=== PATIENT | male | born 1965 | race Caucasian/White ===

== ENCOUNTER 2020-08-27 12:16 | Inpatient (IN) | payer BC, OTHER ==
--- NOTE | 2020-08-27 12:34 | ED ---
General Adult HPI - General Source: patient, RN notes reviewed Mode of arrival: ambulatory Limitations: no limitations <Donnie Horn - Last Filed: 08/27/20 12:33> <Ced Chacko - Last Filed: 08/27/20 17:53> - General Stated complaint: needs rehab, trying to get into [place] Time Seen by Provider: 08/27/20 12:26 - History of Present Illness Initial comments: 55-year-old male presents emergency Department from [place] for evaluation for alcohol intoxication. Patient was going for rehab states that he was struck away secondary to his breath alcohol at 357. Patient states he drinks very heavily. Denies any abdominal pain. Denies any nausea vomiting. Denies any chest pain shortness of breath. Patient does have a history of hypertension. (Donnie Horn) - Related Data Home Medications Medication Instructions Recorded Confirmed Atorvastatin [Lipitor] 40 mg PO DAILY 08/27/20 08/27/20 Levothyroxine Sodium [Synthroid] 25 mcg PO AC-BRKFST 08/27/20 08/27/20 Metoprolol Tartrate [Lopressor] 100 mg PO BID 08/27/20 08/27/20 Nicotine 21Mg/24Hr Patch [Habitrol] 1 patch TRANSDERM DAILY 08/27/20 08/27/20 QUEtiapine [SEROquel] 100 mg PO DAILY@1800 08/27/20 08/27/20 lisinopriL 40 mg PO DAILY 08/27/20 08/27/20 Allergies Allergy/AdvReac Type Severity Reaction Status Date / Time No Known Allergies Allergy Verified 08/27/20 13:45 Review of Systems ROS Other: All systems not noted in ROS Statement are negative. <Donnie Horn - Last Filed: 08/27/20 12:33> ROS Other: All systems not noted in ROS Statement are negative. <Ced Chacko - Last Filed: 08/27/20 17:53> ROS Statement: Those systems with pertinent positive or pertinent negative responses have been documented in the HPI. General Exam General appearance: alert, in no apparent distress Head exam: Present: atraumatic, normocephalic, normal inspection Respiratory exam: Present: normal lung sounds bilaterally. Absent: respiratory distress, wheezes, rales, rhonchi, stridor Cardiovascular Exam: Present: regular rate, normal rhythm, normal heart sounds. Absent: systolic murmur, diastolic murmur, rubs, gallop, clicks Neurological exam: Present: alert <JustinaDonnie Moustapha - Last Filed: 08/27/20 12:33> General appearance: alert, in no apparent distress Head exam: Present: atraumatic, normocephalic, normal inspection Eye exam: Present: normal appearance, PERRL, EOMI. Absent: scleral icterus, conjunctival injection, periorbital swelling ENT exam: Present: normal exam, mucous membranes moist Neck exam: Present: normal inspection. Absent: tenderness, meningismus, lymphadenopathy Respiratory exam: Present: normal lung sounds bilaterally. Absent: respiratory distress, wheezes, rales, rhonchi, stridor Cardiovascular Exam: Present: regular rate, normal rhythm, normal heart sounds. Absent: systolic murmur, diastolic murmur, rubs, gallop, clicks GI/Abdominal exam: Present: soft, normal bowel sounds. Absent: distended, tenderness, guarding, rebound, rigid Extremities exam: Present: normal inspection, full ROM, normal capillary refill. Absent: tenderness, pedal edema, joint swelling, calf tenderness Back exam: Present: normal inspection Neurological exam: Present: alert, oriented X3, CN II-XII intact Psychiatric exam: Present: normal affect, normal mood Skin exam: Present: warm, dry, intact, normal color. Absent: rash <Ced Chacko - Last Filed: 08/27/20 17:53> Course Vital Signs 08/27/20 08/27/20 12:31 17:35 Temperature 98.3 F Pulse Rate 122 H 108 H Respiratory 22 20 Rate Blood Pressure 147/110 156/120 O2 Sat by Pulse 93 L 96 Oximetry Medical Decision Making - Lab Data Result diagrams: 08/27/20 13:23 08/27/20 13:23 <Ced Chacko - Last Filed: 08/27/20 17:53> - Medical Decision Making Patient presents with profound alcohol intoxication. He can't be discharged home in this state. He will be observed until clinically sober. (Ced Chacko) - Lab Data Lab Results 08/27/20 08/27/20 Range/Units 13:23 13:23 WBC 5.3 (3.8-10.6) k/uL RBC 4.67 (4.30-5.90) m/uL Hgb 16.4 (13.0-17.5) gm/dL Hct 45.8 (39.0-53.0) % MCV 98.2 (80.0-100.0) fL MCH 35.1 H (25.0-35.0) pg MCHC 35.8 (31.0-37.0) g/dL RDW 16.2 H (11.5-15.5) % Plt Count 146 L (150-450) k/uL MPV 8.1 Neutrophils % 59 % Lymphocytes % 24 % Monocytes % 10 % Eosinophils % 2 % Basophils % 2 % Neutrophils # 3.1 (1.3-7.7) k/uL Lymphocytes # 1.3 (1.0-4.8) k/uL Monocytes # 0.5 (0-1.0) k/uL Eosinophils # 0.1 (0-0.7) k/uL Basophils # 0.1 (0-0.2) k/uL Anisocytosis Slight Macrocytosis Slight Sodium 144 (137-145) mmol/L Potassium 3.7 (3.5-5.1) mmol/L Chloride 106 (98-107) mmol/L Carbon Dioxide 25 (22-30) mmol/L Anion Gap 13 mmol/L BUN 15 (9-20) mg/dL Creatinine 0.65 L (0.66-1.25) mg/dL Est GFR (CKD-EPI)AfAm >90 (>60 ml/min/1.73 sqM) Est GFR (CKD-EPI)NonAf >90 (>60 ml/min/1.73 sqM) Glucose 118 H (74-99) mg/dL Calcium 9.0 (8.4-10.2) mg/dL Magnesium 1.6 (1.6-2.3) mg/dL Total Bilirubin 0.4 (0.2-1.3) mg/dL AST 188 H (17-59) U/L ALT 32 (4-49) U/L Alkaline Phosphatase 100 (38-126) U/L Total Protein 7.4 (6.3-8.2) g/dL Albumin 4.4 (3.5-5.0) g/dL Lipase 372 H (23-300) U/L Serum Alcohol 431 H* mg/dL Disposition <Donnie Horn - Last Filed: 08/27/20 12:33> Is patient prescribed a controlled substance at d/c from ED?: No <Ced Chacko - Last Filed: 08/27/20 17:53> Clinical Impression: Alcoholic intoxication Disposition: ADMITTED IP TO THIS HOSP Condition: Fair Instructions (If sedation given, give patient instructions): Alcohol Intoxication (ED) Referrals: Nonstaff,Physician [REFERRING] - 1-2 days
[2020-08-27] MEDS ORDERED: SODIUM CHLORIDE 0.9% 1,000 ML IV STA (12:46)
[2020-08-27] MEDS ORDERED: chlordiazePOXIDE 25 MG CAP PO STA (12:46)
[2020-08-27 13:59] LABS: Anisocytosis Slight; Basophils # (A) 0.1 k/uL (0-0.2); Basophils % (A) 2 %; Eosinophils # (A) 0.1 k/uL (0-0.7); Eosinophils % (A) 2 %; HCT 45.8 % (39.0-53.0); HGB 16.4 gm/dL (13.0-17.5); Lymphocytes # (A) 1.3 k/uL (1.0-4.8); Lymphocytes % (A) 24 %; MCH 35.1 pg (25.0-35.0); MCHC 35.8 g/dL (31.0-37.0); MCV 98.2 fL (80.0-100.0); Macrocytosis Slight; Mean Platelet Volume 8.1; Monocytes # (A) 0.5 k/uL (0-1.0); Monocytes % (A) 10 %; Neutrophils # (A) 3.1 k/uL (1.3-7.7); Neutrophils % (A) 59 %; Platelet Count 146 k/uL (150-450); RBC 4.67 m/uL (4.30-5.90); RDW 16.2 % (11.5-15.5); WBC 5.3 k/uL (3.8-10.6)
[2020-08-27 14:12] LABS: ALT 32 U/L (4-49); AST 188 U/L (17-59); African American GFR (CKD) >90 (>60 ml/min/1.73 sqM); Albumin 4.4 g/dL (3.5-5.0); Alkaline Phosphatase 100 U/L (38-126); Anion Gap 13 mmol/L; Blood Urea Nitrogen 15 mg/dL (9-20); Carbon Dioxide 25 mmol/L (22-30); Chloride 106 mmol/L (98-107); Glucose 118 mg/dL (74-99); Lipase 372 U/L (23-300); Magnesium 1.6 mg/dL (1.6-2.3); Non-African American GFR(CKD) >90 (>60 ml/min/1.73 sqM); Potassium 3.7 mmol/L (3.5-5.1); Sodium 144 mmol/L (137-145); Total Bilirubin 0.4 mg/dL (0.2-1.3); Total Protein 7.4 g/dL (6.3-8.2)
[2020-08-27 14:33] LABS: Alcohol 431 mg/dL
[2020-08-27] MEDS ORDERED: NALOXONE 0.4 MG/ML 1 ML VIAL IV PRN (17:53)
[2020-08-27] MEDS ORDERED: ONDANSETRON 4 MG/2 ML VIAL IVP PRN (17:53)
[2020-08-27] MEDS: METOPROLOL TARTRATE 50 MG TAB PO SCH (22:13)
[2020-08-27] MEDS: SODIUM CHLORIDE 0.9% 1,000 ML IV SCH (23:56)
[2020-08-27] MEDS: QUEtiapine 100 MG TAB PO SCH (23:56)
--- NOTE | 2020-08-28 00:31 | P.HPIM ---
History of Present Illness H&P Date: 08/28/20 The patient is a 55-year-old male with a PMH of EtOH abuse, hypertension, hyperlipidemia, and hypothyroidism who presented to the emergency room with alcohol intoxication. The patient notes that he wishes to detox and that he needs to be referred to [facility]. He notes drinking a pint of vodka daily, which is down from a gallon a day. He denied additional complaints. Denied history of alcohol withdrawal seizures or ever requiring Ativan infusion. Denied chest discomfort, shortness of breath, fever, chills, nausea, vomiting, abdominal pain, diarrhea, cough. Laboratory evaluation from the emergency room was reviewed and was remarkable for alcohol level of 431, lipase 372, AST 188, platelets 146. Review of Systems Pertinent positives and negatives as discussed in HPI, a complete review of systems was performed and all other systems are negative. Past Medical History Past Medical History: Hypertension History of Any Multi-Drug Resistant Organisms: None Reported Past Surgical History: No Surgical Hx Reported Past Psychological History: No Psychological Hx Reported Smoking Status: Current every day smoker Past Alcohol Use History: Abuse, Daily, Heavy Past Drug Use History: None Reported Medications and Allergies Home Medications Medication Instructions Recorded Confirmed Type Atorvastatin [Lipitor] 40 mg PO DAILY 08/27/20 08/27/20 History Levothyroxine Sodium [Synthroid] 25 mcg PO AC-BRKFST 08/27/20 08/27/20 History Metoprolol Tartrate [Lopressor] 100 mg PO BID 08/27/20 08/27/20 History Nicotine 21Mg/24Hr Patch [Habitrol] 1 patch TRANSDERM DAILY 08/27/20 08/27/20 History QUEtiapine [SEROquel] 100 mg PO DAILY@1800 08/27/20 08/27/20 History lisinopriL 40 mg PO DAILY 08/27/20 08/27/20 History Allergies Allergy/AdvReac Type Severity Reaction Status Date / Time No Known Allergies Allergy Verified 08/27/20 13:45 Physical Exam Vitals: Vital Signs Temp Pulse Resp BP Pulse Ox 08/27/20 17:35 108 H 20 156/120 96 08/27/20 12:31 98.3 F 122 H 22 147/110 93 L Intake and Output 08/27/20 08/27/20 08/27/20 06:59 14:59 22:59 Other: Weight 86.183 kg General: non toxic, no distress, appears at stated age, overweight Derm: no unusual rashes/lesions no unusual ecchymoses, warm, dry Head: atraumatic, normocephalic, symmetric Eyes: EOMI, no lid lag, anicteric sclera, pupils equal round reactive to light ENT: Nose and ears atraumatic, no thrush, no pharyngeal erythema Neck: No thyromegaly, no cervical lymphadenopathy, trachea midline, supple Mouth: no lip lesion, mucus membranes moist Cardiovascular: S1S2 reg, no murmur, positive posterior tibial pulse bilateral, no edema, capillary refill less than 2 seconds Lungs: CTA bilateral, no rhonchi, no rales , no accessory muscle use Abdominal: soft, nontender to palpation, no guarding, no appreciable organomegaly, normal bowel sounds Ext: no gross muscle atrophy, muscle strength 5 out of 5 in all 4 extremities grossly, no contractures, Neuro: CN II-XI grossly intact, light touch intact all 4 extremities, mild outstretched hand tremor Psych: Alert, oriented, appropriate affect Results CBC & Chem 7: 08/27/20 13:23 08/27/20 13:23 Labs: Abnormal Lab Results - Last 24 Hours (Table) 08/27/20 08/27/20 08/27/20 Range/Units 13:23 13:23 19:18 MCH 35.1 H (25.0-35.0) pg RDW 16.2 H (11.5-15.5) % Plt Count 146 L (150-450) k/uL Creatinine 0.65 L (0.66-1.25) mg/dL Glucose 118 H (74-99) mg/dL AST 188 H (17-59) U/L Lipase 372 H (23-300) U/L Serum Alcohol 431 H* 273 H* mg/dL Assessment and Plan Plan: Alcohol intoxication, impending withdrawal -Continue with thiamine, multivitamin -Aspiration, fall, seizure precautions -[facility] protocol -Referral to [facility] for detox Thrombocytopenia, abnormal LFTs, elevated lipase -Likely secondary to EtOH abuse Chronic conditions: Hypertension, hyperlipidemia, hypothyroidism -Continue with home medications DVT prophylaxis -Heparin subq The patient is admitted with an anticipated less than 2 midnight stay for evaluation of EtOH CODE STATUS: Full code Discussed with: Patient Anticipated discharge date: in am [facility] A total of 35 minutes was spent on the care of this complex patient more than 50% of the time was spent in counseling and care coordination.
[2020-08-28] MEDS ORDERED: THIAMINE 100 MG/ML 2 ML VIAL IM STA (01:43)
[2020-08-28 07:10] LABS: Anisocytosis Slight; HCT 38.3 % (39.0-53.0); MCH 33.8 pg (25.0-35.0); MCHC 34.1 g/dL (31.0-37.0); MCV 99.4 fL (80.0-100.0); Macrocytosis Slight; Mean Platelet Volume 9.1; Platelet Count 116 k/uL (150-450); RBC 3.85 m/uL (4.30-5.90); RDW 17.4 % (11.5-15.5); WBC 3.8 k/uL (3.8-10.6)
[2020-08-28 07:16] LABS: African American GFR (CKD) >90 (>60 ml/min/1.73 sqM); Anion Gap 5 mmol/L; Blood Urea Nitrogen 14 mg/dL (9-20); Calcium 8.1 mg/dL (8.4-10.2); Carbon Dioxide 25 mmol/L (22-30); Chloride 106 mmol/L (98-107); Glucose 91 mg/dL (74-99); Magnesium 1.2 mg/dL (1.6-2.3); Non-African American GFR(CKD) >90 (>60 ml/min/1.73 sqM); Potassium 3.3 mmol/L (3.5-5.1); Sodium 136 mmol/L (137-145)
[2020-08-28] MEDS ORDERED: POTASSIUM CHLORIDE ER 20 MEQ TAB.ER PO STA (08:00)
[2020-08-28] MEDS ORDERED: POTASSIUM CHLORIDE 20 MEQ in WATER FOR INJECTION 1 100ML.BAG IVPB STA (08:00)
[2020-08-28] MEDS: MAGNESIUM SULFATE-D5W PMX 1 GM in DEXTROSE/WATER 1 100ML.BAG IVPB SCH ×2 (08:25→09:33)
[2020-08-28] MEDS: LEVOTHYROXINE 25 MCG TAB PO SCH (08:26)
--- NOTE | 2020-08-28 09:13 | P.PN ---
Subjective Progress Note Date: 08/28/20 Patient was seen and evaluated by me today. He is still having significant shakiness and tremor secondary to alcohol withdrawal. He denies any other complaints otherwise. Objective - Vital Signs Vital signs: Vital Signs Temp 97.8 F 08/28/20 07:00 Pulse 79 08/28/20 07:00 Resp 18 08/28/20 07:00 BP 171/112 08/28/20 07:00 Pulse Ox 96 08/28/20 07:00 Intake & Output 08/27/20 08/28/20 08/28/20 18:59 06:59 18:59 Weight 86.183 kg 86.183 kg Other: # Voids 1 - Exam General: The patient is awake and alert, in no distress Eye: there is normal conjunctiva bilaterally. Neck: The neck is supple, there is no JVD. Cardiovascular: Normal S1-S2, no S3-S4, no murmurs. Respiratory: Lungs clear to auscultation bilaterally Gastrointestinal: Abdomen is soft, nontender Musculoskeletal: There is no pedal edema. Neurological:. Speech is normal. Skin: Skin is warm and dry - Labs CBC & Chem 7: 08/28/20 05:46 08/28/20 05:46 Labs: Abnormal Lab Results - Last 24 Hours (Table) 08/27/20 08/27/20 08/27/20 Range/Units 13:23 13:23 19:18 RBC (4.30-5.90) m/uL Hct (39.0-53.0) % MCH 35.1 H (25.0-35.0) pg RDW 16.2 H (11.5-15.5) % Plt Count 146 L (150-450) k/uL Sodium (137-145) mmol/L Potassium (3.5-5.1) mmol/L Creatinine 0.65 L (0.66-1.25) mg/dL Glucose 118 H (74-99) mg/dL Calcium (8.4-10.2) mg/dL Magnesium (1.6-2.3) mg/dL AST 188 H (17-59) U/L Lipase 372 H (23-300) U/L Serum Alcohol 431 H* 273 H* mg/dL 08/28/20 08/28/20 Range/Units 05:46 05:46 RBC 3.85 L (4.30-5.90) m/uL Hct 38.3 L (39.0-53.0) % MCH (25.0-35.0) pg RDW 17.4 H (11.5-15.5) % Plt Count 116 L (150-450) k/uL Sodium 136 L (137-145) mmol/L Potassium 3.3 L (3.5-5.1) mmol/L Creatinine 0.56 L (0.66-1.25) mg/dL Glucose (74-99) mg/dL Calcium 8.1 L (8.4-10.2) mg/dL Magnesium 1.2 L (1.6-2.3) mg/dL AST (17-59) U/L Lipase (23-300) U/L Serum Alcohol mg/dL Assessment and Plan Assessment: This is a 55-year-old male with past medical history noted below significant for heavy alcohol abuser presented to the emergency room with alcohol intoxication. Patient was evaluated in the ER and placed in observation for further management of his medical problems noted below. 1. Alcohol intoxication, managed with aggressive IV fluid hydration. I would start Valium 10 mg twice daily to prevent withdrawal. Ativan IV as needed per [facility] protocol. 2. Hypokalemia and hypomagnesemia, replacement ordered. Repeat lab work in the morning. 3. Thrombocytopenia, secondary to heavy alcohol abuse 4. Alcohol abuse: Counseled extensively to quit. Patient is willing to go to [place] for rehab. 5. Chronic medical problems: Essential hypertension, hyperlipidemia, hypothyroidism 6. DVT prophylaxis with subcu heparin Today, I reviewed his medication list and lab work results. Patient is now ready for discharge. Continue to treat withdrawal symptoms. Replace electrolytes. Repeat In the morning. Anticipate discharge tomorrow.
[2020-08-28] MEDS: METOPROLOL TARTRATE 50 MG TAB PO SCH ×2 (09:32→21:03)
[2020-08-28] MEDS: lisinopriL 20 MG TAB PO SCH (09:32)
[2020-08-28] MEDS: ATORVASTATIN 40 MG TAB PO SCH (09:32)
[2020-08-28] MEDS: HEPARIN SODIUM,PORCINE/PF 5,000 UNIT/0.5 ML SYRINGE SQ SCH ×3 (09:33→21:02)
[2020-08-28] MEDS: NICOTINE 21MG/24HR PATCH TRANSDERM SCH (09:33)
[2020-08-28] MEDS: LORazepam 2 MG/ML INJ IV PRN ×2 (09:36→21:04)
[2020-08-28] MEDS: diazePAM 5 MG TAB PO SCH ×2 (09:39→21:03)
[2020-08-28] MEDS: QUEtiapine 100 MG TAB PO SCH (17:13)
[2020-08-28] MEDS: THIAMINE 100 MG TAB PO SCH (17:13)
[2020-08-28] MEDS: SODIUM CHLORIDE 0.9% 1,000 ML IV SCH ×4 (18:19→23:41)
[2020-08-29] MEDS: NICOTINE 21MG/24HR PATCH TRANSDERM SCH (01:07)
[2020-08-29] MEDS: SODIUM CHLORIDE 0.9% 1,000 ML IV SCH ×3 (01:10→23:44)
[2020-08-29] MEDS: LORazepam 2 MG/ML INJ IV PRN ×11 (01:17→21:25)
[2020-08-29] MEDS: ATORVASTATIN 40 MG TAB PO SCH (08:21)
[2020-08-29] MEDS: lisinopriL 20 MG TAB PO SCH (08:21)
[2020-08-29] MEDS: diazePAM 5 MG TAB PO SCH ×2 (08:21→20:18)
[2020-08-29] MEDS: METOPROLOL TARTRATE 50 MG TAB PO SCH ×2 (08:21→20:17)
[2020-08-29] MEDS: LEVOTHYROXINE 25 MCG TAB PO SCH (08:21)
[2020-08-29] MEDS: THIAMINE 100 MG TAB PO SCH ×2 (08:22→17:49)
[2020-08-29] MEDS: HEPARIN SODIUM,PORCINE/PF 5,000 UNIT/0.5 ML SYRINGE SQ SCH ×2 (08:22→17:35)
[2020-08-29 13:05] LABS: African American GFR (CKD) >90 (>60 ml/min/1.73 sqM); Anion Gap 5 mmol/L; Blood Urea Nitrogen 7 mg/dL (9-20); Calcium 8.4 mg/dL (8.4-10.2); Carbon Dioxide 25 mmol/L (22-30); Chloride 106 mmol/L (98-107); Glucose 106 mg/dL (74-99); Magnesium 1.4 mg/dL (1.6-2.3); Non-African American GFR(CKD) >90 (>60 ml/min/1.73 sqM); Potassium 3.9 mmol/L (3.5-5.1); Sodium 136 mmol/L (137-145)
[2020-08-29] MEDS ORDERED: diazePAM 5 MG TAB PO STA (13:54)
--- NOTE | 2020-08-29 14:03 | P.PN ---
Subjective Progress Note Date: 08/29/20 Patient was having severe agitation this morning with evidence of tremors and severe withdrawal requiring 8 mg of IV Ativan since midnight. He also received 10 mg of Valium last night and 10 mg this morning. Patient was agitated and was trying to leave the hospital AGAINST MEDICAL ADVICE. I informed him that he is unable to make that decision at this time and is not safe to be discharged. Patient stood up and tried to walk out of the room require me to call security and eventually with help of other staff patient returned to his bed. He received more IV Ativan and appeared more relaxed. Objective - Vital Signs Vital signs: Vital Signs Temp 98.3 F 08/29/20 07:00 Pulse 73 08/29/20 07:00 Resp 20 08/29/20 08:00 BP 162/112 08/29/20 07:00 Pulse Ox 98 08/29/20 07:00 Intake & Output 08/28/20 08/29/20 08/29/20 18:59 06:59 18:59 Intake Total 642 240 Output Total 2 Balance 642 -2 240 Intake: Oral 642 240 Output: Urine 2 Other: Voiding Method Toilet Toilet # Voids 1 1 - Exam General: The patient is awake and alert, in no distress Eye: there is normal conjunctiva bilaterally. Neck: The neck is supple, there is no JVD. Cardiovascular: Normal S1-S2, no S3-S4, no murmurs. Respiratory: Lungs clear to auscultation bilaterally Gastrointestinal: Abdomen is soft, nontender Musculoskeletal: There is no pedal edema. Neurological:. Speech is normal. Skin: Skin is warm and dry - Labs CBC & Chem 7: 08/28/20 05:46 08/29/20 12:24 Labs: Abnormal Lab Results - Last 24 Hours (Table) 08/29/20 Range/Units 12:24 Sodium 136 L (137-145) mmol/L BUN 7 L (9-20) mg/dL Creatinine 0.56 L (0.66-1.25) mg/dL Glucose 106 H (74-99) mg/dL Magnesium 1.4 L (1.6-2.3) mg/dL Assessment and Plan Assessment: This is a 55-year-old male with past medical history noted below significant for heavy alcohol abuser presented to the emergency room with alcohol intoxication. Patient was evaluated in the ER and placed in observation for further management of his medical problems noted below. 1. Alcohol intoxication on presentation now with alcohol withdrawal, managed with aggressive IV fluid hydration. I started Valium 10 mg twice daily to prevent withdrawal. Ativan IV as needed per [facility] protocol. 2. Hypokalemia and hypomagnesemia, replacement ordered. Repeat lab work in the morning. 3. Thrombocytopenia, secondary to heavy alcohol abuse 4. Alcohol abuse: Counseled extensively to quit. Patient is willing to go to [place] for rehab. 5. Chronic medical problems: Essential hypertension, hyperlipidemia, hypothyroidism 6. DVT prophylaxis with subcu heparin Today, I reviewed his medication list and lab work results. Patient does not h ave capacity to make medical decisions at this time secondary to severe alcohol withdrawal and him not being safe for discharge. I will give an additional dose of oral Valium 5 mg now. Continue to treat withdrawal symptoms. Replace electrolytes. Repeat In the morning. Discharge planning pending clinical course
[2020-08-29] MEDS: MAGNESIUM SULFATE-D5W PMX 1 GM in DEXTROSE/WATER 1 100ML.BAG IVPB SCH ×2 (14:13→17:40)
[2020-08-29] MEDS: QUEtiapine 100 MG TAB PO SCH (17:49)
[2020-08-29] MEDS ORDERED: LORazepam 2 MG/ML INJ IV STA (22:57)
[2020-08-29] MEDS ORDERED: LOPERAMIDE 2 MG CAP PO PRN (22:58)
[2020-08-30] MEDS: LORazepam 2 MG/ML INJ IV PRN ×5 (00:39→14:30)
[2020-08-30] MEDS: HEPARIN SODIUM,PORCINE/PF 5,000 UNIT/0.5 ML SYRINGE SQ SCH ×4 (00:39→19:27)
[2020-08-30] MEDS: SODIUM CHLORIDE 0.9% 1,000 ML IV SCH ×5 (02:30→19:35)
[2020-08-30] MEDS: ATORVASTATIN 40 MG TAB PO SCH (07:58)
[2020-08-30] MEDS: lisinopriL 20 MG TAB PO SCH (07:58)
[2020-08-30] MEDS: THIAMINE 100 MG TAB PO SCH ×2 (07:59→18:17)
[2020-08-30] MEDS: diazePAM 5 MG TAB PO SCH ×2 (07:59→19:27)
[2020-08-30] MEDS: NICOTINE 21MG/24HR PATCH TRANSDERM SCH (07:59)
[2020-08-30] MEDS: METOPROLOL TARTRATE 50 MG TAB PO SCH ×2 (07:59→19:27)
[2020-08-30] MEDS: LEVOTHYROXINE 25 MCG TAB PO SCH (07:59)
[2020-08-30 10:34] LABS: African American GFR (CKD) >90 (>60 ml/min/1.73 sqM); Anion Gap 3 mmol/L; Blood Urea Nitrogen 5 mg/dL (9-20); Calcium 8.5 mg/dL (8.4-10.2); Carbon Dioxide 29 mmol/L (22-30); Chloride 105 mmol/L (98-107); Glucose 105 mg/dL (74-99); Magnesium 1.6 mg/dL (1.6-2.3); Non-African American GFR(CKD) >90 (>60 ml/min/1.73 sqM); Potassium 3.3 mmol/L (3.5-5.1); Sodium 137 mmol/L (137-145)
[2020-08-30] MEDS ORDERED: POTASSIUM CHLORIDE 20 MEQ in WATER FOR INJECTION 1 100ML.BAG IVPB STA (11:42)
[2020-08-30] MEDS ORDERED: POTASSIUM CHLORIDE ER 20 MEQ TAB.ER PO STA (11:42)
--- NOTE | 2020-08-30 11:42 | P.PN ---
Subjective Progress Note Date: 08/30/20 Patient is still having withdrawal and requiring multiple doses of IV Ativan since last night. He is more cooperative this morning. He appears calm. Objective - Vital Signs Vital signs: Vital Signs Temp 97.6 F 08/30/20 07:00 Pulse 72 08/30/20 07:00 Resp 16 08/30/20 08:00 BP 153/88 08/30/20 07:00 Pulse Ox 97 08/30/20 07:00 Intake & Output 08/29/20 08/30/20 08/30/20 18:59 06:59 18:59 Intake Total 240 300 Balance 240 300 Intake: Oral 240 300 Other: Voiding Method Toilet Toilet Toilet # Voids 1 1 - Exam General: The patient is awake and alert, in no distress Eye: there is normal conjunctiva bilaterally. Neck: The neck is supple, there is no JVD. Cardiovascular: Normal S1-S2, no S3-S4, no murmurs. Respiratory: Lungs clear to auscultation bilaterally Gastrointestinal: Abdomen is soft, nontender Musculoskeletal: There is no pedal edema. Neurological:. Speech is normal. Skin: Skin is warm and dry - Labs CBC & Chem 7: 08/28/20 05:46 08/30/20 08:58 Labs: Abnormal Lab Results - Last 24 Hours (Table) 08/29/20 08/30/20 Range/Units 12:24 08:58 Sodium 136 L (137-145) mmol/L Potassium 3.3 L (3.5-5.1) mmol/L BUN 7 L 5 L (9-20) mg/dL Creatinine 0.56 L (0.66-1.25) mg/dL Glucose 106 H 105 H (74-99) mg/dL Magnesium 1.4 L (1.6-2.3) mg/dL Assessment and Plan Assessment: This is a 55-year-old male with past medical history noted below significant for heavy alcohol abuser presented to the emergency room with alcohol intoxication. Patient was evaluated in the ER and placed in observation for further management of his medical problems noted below. 1. Alcohol intoxication on presentation now with alcohol withdrawal, managed with aggressive IV fluid hydration. I started Valium 10 mg twice daily to prevent withdrawal. Ativan IV as needed per [place] protocol. 2. Hypokalemia and hypomagnesemia, replacement ordered. Repeat lab work in the morning. 3. Thrombocytopenia, secondary to heavy alcohol abuse 4. Alcohol abuse: Counseled extensively to quit. Patient is willing to go to [place] for rehab. 5. Chronic medical problems: Essential hypertension, hyperlipidemia, hypothyroidism 6. DVT prophylaxis with subcu heparin Today, I reviewed his medication list and lab work results. Continue to treat withdrawal symptoms. Replace electrolytes. Repeat In the morning. Discharge planning pending clinical course
[2020-08-30] MEDS: QUEtiapine 100 MG TAB PO SCH (18:17)
[2020-08-31] MEDS: THIAMINE 100 MG TAB PO SCH ×2 (08:21→16:50)
[2020-08-31] MEDS: ATORVASTATIN 40 MG TAB PO SCH (08:21)
[2020-08-31] MEDS: LEVOTHYROXINE 25 MCG TAB PO SCH (08:21)
[2020-08-31] MEDS: METOPROLOL TARTRATE 50 MG TAB PO SCH ×2 (08:21→19:57)
[2020-08-31] MEDS: lisinopriL 20 MG TAB PO SCH (08:22)
[2020-08-31] MEDS: NICOTINE 21MG/24HR PATCH TRANSDERM SCH (08:22)
[2020-08-31] MEDS: diazePAM 5 MG TAB PO SCH ×2 (08:22→19:58)
[2020-08-31] MEDS: HEPARIN SODIUM,PORCINE/PF 5,000 UNIT/0.5 ML SYRINGE SQ SCH ×3 (08:22→19:58)
[2020-08-31 14:06] LABS: African American GFR (CKD) 129.4 (60.0-200.0); Anion Gap 8.6 mmol/L (4.00-12.00); BUN/Creat Ratio 11.67 Ratio (12.00-20.00); Calcium 8.6 mg/dL (8.7-10.3); Carbon Dioxide 25.4 mmol/L (21.6-31.8); Magnesium 1.4 mg/dL (1.5-2.4); Non-African American GFR(CKD) 111.6 (60.0-200.0); Potassium 3.6 mmol/L (3.5-5.5)
[2020-08-31] MEDS: MAGNESIUM SULFATE-D5W PMX 1 GM in DEXTROSE/WATER 1 100ML.BAG IVPB SCH ×4 (14:53→18:02)
[2020-08-31] MEDS: SODIUM CHLORIDE 0.9% 1,000 ML IV SCH (16:04)
--- NOTE | 2020-08-31 16:25 | P.PN ---
Subjective Progress Note Date: 08/31/20 Hospital Course: Patient is a 55-year-old male with a past medical history of hypertension, hyperlipidemia, hypothyroidism, anxiety, and severe alcohol abuse drinking a reported half a gallon of vodka daily. Patient presented to the hospital on 08/27/20 with alcohol intoxication requesting assistance on detox and placement into rehab facility. Patient was admitted under our services and has successfully underwent detox under [facility] protocol with symptom triggered medication management with Ativan along with scheduled Valium. Patient being treated for significant electrolyte abnormalities and case management following assisting patient with plans for placement in a drug and alcohol rehabilitation facility upon discharge. Physical exam: 08/31/20: Patient seen and fully evaluated at the bedside this morning. He reports feeling well this morning. He has had a total of 2 mg of Ativan over the past 24 hours for treatment of alcohol withdrawal. Patient denies having any headache, lightheadedness, dizziness, chest pain, palpitations, shortness of breath, abdominal pain, nausea, vomiting, diarrhea, numbness/tingling/weakness in extremities, experiencing any further tremors, and denies having any visual/auditory/tactile hallucinations. General: non toxic, no distress, appears at stated age Derm: warm, dry Head: atraumatic, normocephalic, symmetric Eyes: EOMI, no lid lag, anicteric sclera Mouth: no lip lesion, mucus membranes moist Cardiovascular: S1S2 reg, no murmur, positive posterior tibial pulse bilateral, Lungs: CTA bilateral, no rhonchi, no rales , no accessory muscle use Abdominal: soft, nontender to palpation, no guarding, no appreciable organomegaly Ext: no gross muscle atrophy, no edema, no contractures Neuro: CN II-XI grossly intact, no focal neuro deficits Psych: Alert, oriented, appropriate affect Plan of care: Alcohol intoxication on presentation with withdrawal -Patient successfully underwent alcohol detox with use of [facility] protocol with symptom triggered medication management with Ativan along with scheduled Valium. -Patient has had 2 mg of Ativan over the past 24 hours. -Ativan discontinued at this time, we will continue with scheduled Valium. -Continue daily thiamine. -Continue gentle hydration with IV fluids. -Continue fall, aspiration, and seizure precautions. Hypomagnesemia -Magnesium 1.4 and orders placed for replacement. Hypokalemia, resolved Hypothyroidism -Continue levothyroxine 25 g each morning. Hypertension - Continue metoprolol 100 mg twice daily. Hyperlipidemia -Continue atorvastatin 40 mg nightly. -Heart healthy diet. CODE STATUS: Full code DVT prophylaxis: Heparin Discussed with: Patient and RN Anticipated discharge date: Tomorrow Anticipated discharge place: Being discharged tomorrow morning with appointment for admission at [facility] for 10:30 AM A total of 45 minutes was spent on the care of this complex patient more than 50% of the time was spent in counseling and care coordination. Objective - Vital Signs Vital signs: Vital Signs Temp 98.2 F 08/31/20 07:00 Pulse 66 08/31/20 07:00 Resp 16 08/31/20 07:00 BP 159/90 08/31/20 07:00 Pulse Ox 98 08/31/20 07:00 Intake & Output 08/30/20 08/31/20 08/31/20 18:59 06:59 18:59 Intake Total 1000 800 Balance 1000 800 Intake: IV 400 800 Sodium Chloride 0.9% 1, 400 800 000 ml @ 100 mls/hr IV . Q10H [facility] Rx#:[id number] Intake, IV Titration 100 Amount Potassium Chloride 20 meq 100 In Water For Injection 1 100ml.bag @ 50 mls/hr IVPB ONCE STA Rx#: [id number] Oral 500 Other: Voiding Method Toilet Toilet Toilet # Voids 2 - Labs CBC & Chem 7: 08/28/20 05:46 08/31/20 05:14
[2020-08-31] MEDS ORDERED: ACETAMINOPHEN TAB 325 MG TAB PO PRN (16:27)
[2020-08-31] MEDS ORDERED: hydrALAZINE HCL 20 MG/ML 1 ML VIAL IVP STA (16:28)
[2020-08-31] MEDS: amLODIPine 5 MG TAB PO SCH (16:53)
[2020-08-31] MEDS: QUEtiapine 100 MG TAB PO SCH (16:57)
[2020-08-31 22:10] VITALS: RESP 18
[2020-09-01 02:48] VITALS: PULSE 62; TEMP 97.8
[2020-09-01] MEDS: lisinopriL 20 MG TAB PO SCH (08:43)
[2020-09-01] MEDS: THIAMINE 100 MG TAB PO SCH (08:43)
[2020-09-01] MEDS: HEPARIN SODIUM,PORCINE/PF 5,000 UNIT/0.5 ML SYRINGE SQ SCH (08:43)
[2020-09-01] MEDS: LEVOTHYROXINE 25 MCG TAB PO SCH (08:43)
[2020-09-01] MEDS: METOPROLOL TARTRATE 50 MG TAB PO SCH (08:43)
[2020-09-01] MEDS: amLODIPine 5 MG TAB PO SCH (08:43)
[2020-09-01] MEDS: ATORVASTATIN 40 MG TAB PO SCH (08:43)
[2020-09-01] MEDS: NICOTINE 21MG/24HR PATCH TRANSDERM SCH (08:53)
[2020-09-01] MEDS ORDERED: diazePAM 5 MG TAB PO SCH (09:00)
[2020-09-01 10:25] LABS: African American GFR (CKD) >90 (>60 ml/min/1.73 sqM); Anion Gap 6 mmol/L; Blood Urea Nitrogen 7 mg/dL (9-20); Calcium 9.5 mg/dL (8.4-10.2); Carbon Dioxide 28 mmol/L (22-30); Chloride 103 mmol/L (98-107); Glucose 196 mg/dL (74-99); Magnesium 1.6 mg/dL (1.6-2.3); Non-African American GFR(CKD) >90 (>60 ml/min/1.73 sqM); Potassium 3.8 mmol/L (3.5-5.1); Sodium 137 mmol/L (137-145)
[2020-09-01 10:36] VITALS: BP 137/97
[2020-09-01] MEDS: MAGNESIUM SULFATE-D5W PMX 1 GM in DEXTROSE/WATER 1 100ML.BAG IVPB SCH ×2 (10:42→11:41)
[2020-09-01] MEDS ORDERED: MAGNESIUM OXIDE 400 MG TAB PO STA (10:55)
--- NOTE | 2020-09-01 12:10 | P.DS ---
Providers Date of admission: 08/30/20 09:09 Expected date of discharge: 09/01/20 Attending physician: Talia Sandra MD Primary care physician: Stated None Hospital Course: Discharge Diagnosis Alcohol intoxication on presentation with withdrawal, successfully underwent detox Hypomagnesemia Hypokalemia Hypothyroidism Hypertension Hyperlipidemia Hospital Course: Patient is a 55-year-old male with a past medical history of hypertension, hyperlipidemia, hypothyroidism, anxiety, and severe alcohol abuse drinking a reported half a gallon of vodka daily. Patient presented to the hospital on 08/27/20 with alcohol intoxication requesting assistance on detox and placement into rehab facility. Patient was admitted under our services and has successfully underwent detox under [facility] protocol with symptom triggered medication management with Ativan along with scheduled Valium. In addition to withdrawal, pt was also treated for significant electrolyte abnormalities. Arrangements were made for patient to report to [place] this afternoon with check-in time being 3 PM. Patient being discharged on new medications including Valium, amlodipine, thiamine, and magnesium oxide. Valium is recommended to continue 5 mg twice daily for 3 more days to taper off. Amlodipine was started as patient was hypertensive throughout stay and despite his daily medication regimen with lisinopril, his blood pressures remained elevated and he was started on amlodipine 5 mg once daily. Pt stable for discharge at this time, he reports his sister is picking him up and driving him to [place] rehab. Physical exam: 09/01/20: Patient seen and fully evaluated at the bedside this morning. He reports feeling well this morning. He has not had any ativan in over 24 hours. Pt states he is ready to get out of here and take the next step forward in his life. He continues to deny having any headache, lightheadedness, dizziness, chest pain, palpitations, shortness of breath, abdominal pain, nausea, vomiting, diarrhea, numbness/tingling/weakness in extremities, experiencing any further tremors, and denies having any visual/auditory/tactile hallucinations. General: non toxic, no distress, appears at stated age Derm: warm, dry Head: atraumatic, normocephalic, symmetric Eyes: EOMI, no lid lag, anicteric sclera Mouth: no lip lesion, mucus membranes moist Cardiovascular: S1S2 reg, no murmur, positive posterior tibial pulses bilaterally, cap refill < 2 seconds. Lungs: CTA bilateral, no rhonchi, no rales , no accessory muscle use Abdominal: soft, nontender to palpation, no guarding, no appreciable organomegaly Ext: no gross muscle atrophy, no edema, no contractures Neuro: CN II-XI grossly intact, no focal neuro deficits Psych: Alert, oriented, appropriate affect A total of 45 minutes of time were spent preparing this complex discharge summary. Patient Condition at Discharge: Fair Plan - Discharge Summary Discharge Rx Participant: Yes New Discharge Prescriptions: New diazePAM [Valium] 5 mg PO BID 3 Days #6 tab Thiamine [Vitamin B-1] 100 mg PO BID-W/MEALS 30 Days #60 tab amLODIPine [Norvasc] 5 mg PO DAILY 30 Days #30 tab Magnesium Oxide [Magox 400] 400 mg PO DAILY 30 Days #30 tablet Continue Nicotine 21Mg/24Hr Patch [Habitrol] 1 patch TRANSDERM DAILY Atorvastatin [Lipitor] 40 mg PO DAILY lisinopriL 40 mg PO DAILY Levothyroxine Sodium [Synthroid] 25 mcg PO AC-[facility] QUEtiapine [SEROquel] 100 mg PO DAILY@1800 Metoprolol Tartrate [Lopressor] 100 mg PO BID Discharge Medication List Atorvastatin [Lipitor] 40 mg PO DAILY 08/27/20 [History] Levothyroxine Sodium [Synthroid] 25 mcg PO AC-[facility] 08/27/20 [History] Metoprolol Tartrate [Lopressor] 100 mg PO BID 08/27/20 [History] Nicotine 21Mg/24Hr Patch [Habitrol] 1 patch TRANSDERM DAILY 08/27/20 [History] QUEtiapine [SEROquel] 100 mg PO DAILY@1800 08/27/20 [History] lisinopriL 40 mg PO DAILY 08/27/20 [History] Magnesium Oxide [Magox 400] 400 mg PO DAILY 30 Days #30 tablet 09/01/20 [Rx] Thiamine [Vitamin B-1] 100 mg PO BID-W/MEALS 30 Days #60 tab 09/01/20 [Rx] amLODIPine [Norvasc] 5 mg PO DAILY 30 Days #30 tab 09/01/20 [Rx] diazePAM [Valium] 5 mg PO BID 3 Days #6 tab 09/01/20 [Rx] Follow up Appointment(s)/Referral(s): Colin Contreras [STAFF PHYSICIAN] - As Needed (Please obtain a PCP and follow up upon discharge from [place] for terminal operator monitoring and management of your hypertension, hyperlipidemia, hypothyroidism, and anxiety, this is the name and information of a local PCP, however you may want to obtain a PCP in the area you currently live in [place]. ) Patient Instructions/Handouts: Diazepam (By mouth), Thiamine (By mouth), Amlodipine (By mouth), Magnesium Oxide (By mouth), Alcohol Intoxication (ED) Discharge Disposition: HOME SELF-CARE Plan of Treatment: Activity: As tolerated Diet: Heart Healthy diet Special Instructions: You are being discharged this morning and your appointment for admission to [place] is at 3:00 PM. I would like to wish you the best of luck on your journey towards sobriety!!! Upon discharge from [place], you will need to obtain a PCP and follow for terminal operator monitoring and management of your hypertension, hyperlipidemia, hypothyroidism, and anxiety. Thank you for allowing us to participate in your care!!
== END 2020-09-01 13:07 | disposition home or self-care (01) | DRG 897 ==
LOC: EC 12:16 → 6NMEDSUR 17:53 → OBSVTOIN 08-30 09:09
PROVIDERS: ADMIT Internal Medicine; ATTEND Internal Medicine
DX: F10.239 Alcohol dependence with withdrawal, unspecified (principal); F10.229 Alcohol dependence with intoxication, unspecified; D69.59 Other secondary thrombocytopenia; E03.9 Hypothyroidism, unspecified; E78.5 Hyperlipidemia, unspecified; E83.42 Hypomagnesemia; E87.6 Hypokalemia; F17.200 Nicotine dependence, unspecified, uncomplicated; I10 Essential (primary) hypertension; Y90.8 Blood alcohol level of 240 mg/100 ml or more; Z79.890 Hormone replacement therapy; Z79.899 Other long term (current) drug therapy; F41.9 Anxiety disorder, unspecified; Z20.822 Contact with and (suspected) exposure to COVID-19
CPT/HCPCS: 36415; 80048; 80053; 80320; 83690; 83735; 85025; 85027; 87635; 93005; 96361; 96374; 99284

== ENCOUNTER 2020-10-15 16:00 | Inpatient (IN) | payer OTHER ==
--- NOTE | 2020-10-15 16:43 | ED ---
Recheck HPI - General Chief Complaint: Recheck/Abnormal Lab/Rx Stated Complaint: ETOH Time Seen by Provider: 10/15/20 16:14 Source: patient, EMS Mode of arrival: EMS Limitations: no limitations - History of Present Illness Initial Comments: 55-year-old male with history of alcohol abuse presents to the emergency department for alcohol intoxication. Patient states he typically drinks about a fifth of alcohol daily. States he went to a rehab facility and was brought to the emergency department for further evaluation via EMS. Per bystander report, patient fell and hit the right occipital region of the head without any loss of consciousness. This was a mechanical fall from a standing level. She is denying any homicidal, suicidal thoughts or ideations. - Related Data Home Medications Medication Instructions Recorded Confirmed Atorvastatin [Lipitor] 40 mg PO DAILY 08/27/20 10/15/20 Levothyroxine Sodium [Synthroid] 25 mcg PO AC-[facility] 08/27/20 10/15/20 Metoprolol Tartrate [Lopressor] 100 mg PO BID 08/27/20 10/15/20 QUEtiapine [SEROquel] 100 mg PO DAILY@1800 08/27/20 10/15/20 lisinopriL 40 mg PO DAILY 08/27/20 10/15/20 Ibuprofen [Motrin] 800 mg PO Q8H PRN 10/15/20 10/15/20 Previous Rx's Medication Instructions Recorded Magnesium Oxide [Magox 400] 400 mg PO DAILY 30 Days #30 tablet 09/01/20 Thiamine [Vitamin B-1] 100 mg PO BID-W/MEALS 30 Days #60 09/01/20 tab amLODIPine [Norvasc] 5 mg PO DAILY 30 Days #30 tab 09/01/20 Allergies Allergy/AdvReac Type Severity Reaction Status Date / Time No Known Allergies Allergy Verified 10/15/20 17:06 Review of Systems ROS Statement: Those systems with pertinent positive or pertinent negative responses have been documented in the HPI. ROS Other: All systems not noted in ROS Statement are negative. Past Medical History Past Medical History: Hyperlipidemia, Hypertension, Thyroid Disorder Additional Past Medical History / Comment(s): lung "spots" History of Any Multi-Drug Resistant Organisms: None Reported Past Surgical History: Appendectomy Additional Past Surgical History / Comment(s): rt leg stent, Past Anesthesia/Blood Transfusion Reactions: No Reported Reaction Past Psychological History: Anxiety, Depression Smoking Status: Current every day smoker Past Alcohol Use History: Abuse, Daily, Heavy Past Drug Use History: None Reported General Exam Limitations: no limitations General appearance: alert, in no apparent distress, appears intoxicated Head exam: Present: atraumatic, normocephalic, normal inspection. Absent: other (Negative Westfall sign, raccoon eyes, and attempted.) Eye exam: Present: normal appearance, PERRL, EOMI Pupils: Present: normal accommodation ENT exam: Present: normal exam, normal oropharynx, mucous membranes moist Neck exam: Present: normal inspection, full ROM. Absent: tenderness Respiratory exam: Present: normal lung sounds bilaterally. Absent: respiratory distress, wheezes Cardiovascular Exam: Present: regular rate, normal rhythm, normal heart sounds. Absent: systolic murmur Extremities exam: Present: normal inspection, full ROM Back exam: Present: normal inspection, full ROM Neurological exam: Present: alert, oriented X3 Psychiatric exam: Present: normal affect, normal mood Skin exam: Present: warm, dry, intact, normal color Course Vital Signs 10/15/20 10/15/20 10/15/20 16:02 17:00 18:20 Temperature 97.0 F L 97.1 F L Pulse Rate 98 81 93 Respiratory 20 20 16 Rate Blood Pressure 166/129 168/88 161/118 O2 Sat by Pulse 98 99 98 Oximetry 10/15/20 10/15/20 10/15/20 20:04 21:19 22:00 Temperature 97.9 F 96.9 F L Pulse Rate 88 107 H 98 Respiratory 16 16 20 Rate Blood Pressure 146/106 168/120 167/123 O2 Sat by Pulse 98 98 97 Oximetry 10/15/20 22:35 Temperature Pulse Rate 81 Respiratory 16 Rate Blood Pressure 146/108 O2 Sat by Pulse 97 Oximetry Medical Decision Making - Medical Decision Making 55-year-old male with history of alcohol abuse presents to the emergency department for alcohol intoxication. On physical examination, patient is quite intoxicated. He is yelling while he is in emergency department. CBC unremarkable. CMP shows hypernatremia. Elevated transaminases likely due to alcohol abuse. Urine drug positive for tricyclic antidepressants and benzodiazepines . Patient has a blood alcohol level of 0.360. Patient also takes anti-hypertensive medication but has not taken in over a week. Patient supposedly suffered a mechanical fall but there are no acute findings in the head. CT of the brain and C-spine is unremarkable. Case was discussed with Dr. Whittaker I spoke with Dr. Verde who will admit patient for further medical management. Psychiatry consult. Олег assessed Ativan protocol Patient was hypertensive prior to being admitted to the floor. There is no concern for hypertensive emergency. Patient given was his typical Lopressor dose. The medical floor refused take the patient due to his elevated blood pressure. Patient was given labetalol and had improved blood pressure. He will be admitted. - Lab Data Result diagrams: 10/15/20 16:36 10/15/20 16:36 Lab Results 10/15/20 10/15/20 10/15/20 Range/Units 16:36 16:36 16:36 WBC 5.7 (3.8-10.6) k/uL RBC 4.43 (4.30-5.90) m/uL Hgb 15.0 (13.0-17.5) gm/dL Hct 47.5 (39.0-53.0) % MCV 107.4 H D (80.0-100.0) fL MCH 33.8 (25.0-35.0) pg MCHC 31.5 (31.0-37.0) g/dL RDW 17.1 H (11.5-15.5) % Plt Count 344 D (150-450) k/uL MPV 7.6 Neutrophils % 55 % Lymphocytes % 28 % Monocytes % 10 % Eosinophils % 2 % Basophils % 2 % Neutrophils # 3.2 (1.3-7.7) k/uL Lymphocytes # 1.6 (1.0-4.8) k/uL Monocytes # 0.5 (0-1.0) k/uL Eosinophils # 0.1 (0-0.7) k/uL Basophils # 0.1 (0-0.2) k/uL Anisocytosis Slight Macrocytosis Marked A Sodium 148 H (137-145) mmol/L Potassium 4.0 (3.5-5.1) mmol/L Chloride 112 H (98-107) mmol/L Carbon Dioxide 28 (22-30) mmol/L Anion Gap 8 mmol/L BUN 12 (9-20) mg/dL Creatinine 0.77 (0.66-1.25) mg/dL Est GFR (CKD-EPI)AfAm >90 (>60 ml/min/1.73 sqM) Est GFR (CKD-EPI)NonAf >90 (>60 ml/min/1.73 sqM) Glucose 87 (74-99) mg/dL Calcium 9.5 (8.4-10.2) mg/dL Total Bilirubin 0.2 (0.2-1.3) mg/dL AST 91 H (17-59) U/L ALT 68 H (4-49) U/L Alkaline Phosphatase 102 (38-126) U/L Total Protein 7.1 (6.3-8.2) g/dL Albumin 4.2 (3.5-5.0) g/dL Urine Opiates Screen Not Detected (NotDetected) Ur Oxycodone Screen Not Detected (NotDetected) Urine Methadone Screen Not Detected (NotDetected) Ur Propoxyphene Screen Not Detected (NotDetected) Ur Barbiturates Screen Not Detected (NotDetected) U Tricyclic Antidepress Detected H (NotDetected) Ur Phencyclidine Scrn Not Detected (NotDetected) Ur Amphetamines Screen Not Detected (NotDetected) U Methamphetamines Scrn Not Detected (NotDetected) U Benzodiazepines Scrn Detected H (NotDetected) Urine Cocaine Screen Not Detected (NotDetected) U Marijuana (THC) Screen Not Detected (NotDetected) Serum Alcohol 361 H* mg/dL Disposition Clinical Impression: Alcoholic intoxication Disposition: ADMITTED IP TO THIS HOSP Condition: Fair Is patient prescribed a controlled substance at d/c from ED?: No Time of Disposition: 20:00
[2020-10-15 16:48] LABS: Anisocytosis Slight; Basophils # (A) 0.1 k/uL (0-0.2); Basophils % (A) 2 %; Eosinophils # (A) 0.1 k/uL (0-0.7); Eosinophils % (A) 2 %; HCT 47.5 % (39.0-53.0); Lymphocytes # (A) 1.6 k/uL (1.0-4.8); Lymphocytes % (A) 28 %; MCH 33.8 pg (25.0-35.0); MCHC 31.5 g/dL (31.0-37.0); Macrocytosis Marked; Mean Platelet Volume 7.6; Monocytes # (A) 0.5 k/uL (0-1.0); Monocytes % (A) 10 %; Neutrophils # (A) 3.2 k/uL (1.3-7.7); Neutrophils % (A) 55 %; RBC 4.43 m/uL (4.30-5.90); RDW 17.1 % (11.5-15.5); WBC 5.7 k/uL (3.8-10.6)
[2020-10-15 16:56] LABS: MCV 107.4 fL (80.0-100.0)
[2020-10-15 16:57] LABS: Platelet Count 344 k/uL (150-450)
[2020-10-15 17:00] LABS: ALT 68 U/L (4-49); AST 91 U/L (17-59); African American GFR (CKD) >90 (>60 ml/min/1.73 sqM); Albumin 4.2 g/dL (3.5-5.0); Alkaline Phosphatase 102 U/L (38-126); Anion Gap 8 mmol/L; Blood Urea Nitrogen 12 mg/dL (9-20); Calcium 9.5 mg/dL (8.4-10.2); Carbon Dioxide 28 mmol/L (22-30); Chloride 112 mmol/L (98-107); Glucose 87 mg/dL (74-99); Non-African American GFR(CKD) >90 (>60 ml/min/1.73 sqM); Sodium 148 mmol/L (137-145); Total Bilirubin 0.2 mg/dL (0.2-1.3); Total Protein 7.1 g/dL (6.3-8.2)
[2020-10-15 17:04] LABS: Amphetamine Screen,Urine Not Detected (NotDetected); Benzodiazepines Screen,Urine Detected (NotDetected); Cocaine Screen,Urine Not Detected (NotDetected); Opiate Screen,Urine Not Detected (NotDetected); Phencyclidine Screen,Urine Not Detected (NotDetected)
[2020-10-15 17:05] LABS: Barbiturate Screen,Urine Not Detected (NotDetected); Methadone Screen, Urine Not Detected (NotDetected); Oxycodone Screen, Urine Not Detected (NotDetected); Tricyclic Antidepressant,Urine Detected (NotDetected); Urn Cannabinoid Scrn Not Detected (NotDetected)
[2020-10-15 17:13] LABS: Alcohol 361 mg/dL
[2020-10-15] MEDS ORDERED: THIAMINE 100 MG/ML 2 ML VIAL IM STA (17:30)
[2020-10-15] MEDS ORDERED: LORazepam 2 MG/ML INJ IV PRN ×2 (17:30)
[2020-10-15] MEDS ORDERED: NALOXONE 0.4 MG/ML 1 ML VIAL IV PRN (18:00)
--- NOTE | 2020-10-15 18:18 | CT ---
EXAMINATION TYPE: CT brain dhruv chamorro DATE OF EXAM: 10/15/2020 COMPARISON: None HISTORY: Fall, ETOH. CT DLP: 1438.7 mGycm Automated exposure control for dose reduction was used. There is cerebral cortical atrophy. There is no mass effect nor midline shift. There is no sign of in tracranial hemorrhage. The calvarium is intact. Skull base is intact. There is normal aeration of the mastoid sinuses. The cervical vertebra have normal alignment. There is mild spurring at C6-7 and C3-4. Posterior eleme nts are intact. There is no compression fracture. Facet joints are intact. Facet joints appear normal . IMPRESSION: Minor degenerative spurring in the cervical spine. No fracture. Cerebral atrophy. No acute intracranial abnormality.
[2020-10-15] MEDS: SODIUM CHLORIDE 0.9% 1,000 ML IV SCH (18:38)
[2020-10-15] MEDS ORDERED: TEMAZEPAM 15 MG CAP PO PRN (18:55)
[2020-10-15] MEDS ORDERED: HYDROmorphone 0.5 MG/0.5 ML SYRINGE IVP PRN (18:55)
--- NOTE | 2020-10-15 20:22 | XR ---
EXAMINATION TYPE: XR ribs RT w pa chest xray DATE OF EXAM: 10/15/2020 COMPARISON: NONE HISTORY: Fall. Right rib pain TECHNIQUE: 5 views FINDINGS: Heart and mediastinum are normal. Lungs are clear of infiltrate. There is no pleural effusi on or pneumothorax. There is osteopenia. There is some linear density right lung base. There is possi ble nondisplaced fracture posterior right 11th rib. IMPRESSION: Minimal atelectasis right lung base. Possible right 11th rib fracture.
--- NOTE | 2020-10-15 20:27 | HP ---
HISTORY AND PHYSICAL CHIEF COMPLAINT: Alcohol intoxication. HISTORY OF PRESENT ILLNESS: This 55-year-old gentleman with a past medical history of multiple medical problems, including hypertension, hyperlipidemia, hypothyroidism, history of lung spots, anxiety, depression, was admitted with alcohol intoxication. Patient was apparently supposed to be checked into [facility]. The patient is verbose at this time. The patient is confused. Evaluation in the ER showed elevated alcohol level of 361. The patient was admitted for further evaluation and treatment. There is no history of any fever, rigor or chills. The patient is also complaining of pain on the right side of the chest, apparently a result of trauma, at this time. AST and ALT were slightly elevated also. There is no history of any fever, rigor or chills. PAST MEDICAL HISTORY: Hypertension, hyperlipidemia, hypothyroidism, lung spots, anxiety, depression, history of smoking, alcohol intake. MEDICATIONS: Medications prior to admission include lisinopril 40 mg p.o. daily, Norvasc, vitamin B1, Seroquel, Lopressor, magnesium oxide, Synthroid, Motrin, Lipitor. Doses are reviewed. ALLERGIES: NONE. FAMILY HISTORY: No history of heart disease or strokes in the family. SOCIAL HISTORY: History of smoking. History of significant alcohol abuse. REVIEW OF SYSTEMS: ENT: No diminished hearing. No diminished vision. CARDIOVASCULAR SYSTEM: No angina, palpitations. RESPIRATORY SYSTEM: As mentioned earlier. GI: No nausea, vomiting. : No dysuria or retention. NERVOUS SYSTEM: No numbness, weakness. ALLERGY/IMMUNOLOGY: No asthma, hayfever. MUSCULOSKELETAL: As mentioned earlier. HEMATOLOGY/ONCOLOGY: No history of anemia. ENDOCRINE: No history of diabetes, hypothyroidism. CONSTITUTIONAL: As mentioned earlier. DERMATOLOGY: Negative. RHEUMATOLOGY: Negative. PSYCHIATRY: As mentioned earlier. PHYSICAL EXAMINATION: Patient alert and oriented x3. Pulse 81, blood pressure 168/80, respiration 20, temperature 97 degrees, pulse ox 99% on room air. HEENT: Conjunctivae normal. NECK: No jugular venous distention. CARDIOVASCULAR SYSTEM: S1, S2 muffled. RESPIRATORY SYSTEM: Breath sounds diminished at the bases. A few scattered rhonchi. ABDOMEN: Soft, non-tender. LEGS: No edema. No swelling. NERVOUS SYSTEM: Higher functions as mentioned earlier. Moves all 4 limbs. No focal motor or sensory deficit. LYMPHATICS: No lymph node palpable in neck, axillae or groin. SKIN: No ulcer, rash, bleeding. JOINTS: No active deforming arthropathy. LABS: WBC 5.7, MCV is 107.4. Sodium 148, potassium 4. AST 91, ALT 68. UA noted. ASSESSMENT: 1. Acute alcohol intoxication. 2. Acute alcohol withdrawal and early delirium tremens. 3. Hypernatremia with dehydration. 4. Right-sided chest pain for evaluation. Rule out rib fracture. 5. Increased mean corpuscular volume secondary to alcohol. 6. Elevated AST and ALT, possibly secondary to alcoholic hepatitis. 7. Hypertension. 8. Hyperlipidemia. 9. History of hypothyroidism. 10.History of lung sports. 11.Anxiety, depression. 12.History of nicotine dependence. 13.FULL CODE. RECOMMENDATIONS AND DISCUSSION: In this 55-year-old gentleman who presented with multiple complex medical issues, we will monitor the patient closely. WA protocol. I also recommend dedicated x-rays of the right side of the chest to rule out the possibility of any rib fracture. Otherwise, CT scan of the brain showed only some mild cerebral atrophy. No acute changes are noted. Overall prognosis is guarded because of multiple complex medical issues. Will also obtain a psych consult. See orders for further details. Further recommendations to follow. Alcohol cessation was recommended. The patient may be sent to rehab for further evaluation. MMODL / IJN: [id number] /
[2020-10-15] MEDS: METOPROLOL TARTRATE 50 MG TAB PO SCH (21:14)
[2020-10-15] MEDS: HEPARIN SODIUM,PORCINE/PF 5,000 UNIT/0.5 ML SYRINGE SQ SCH (21:14)
[2020-10-15] MEDS: HYDROcodone/APAP 5-325MG 1 EACH TAB PO PRN (21:17)
[2020-10-15] MEDS ORDERED: LABETALOL 5 MG/ML VIAL MDV IVP STA (22:12)
[2020-10-15] MEDS: LORazepam 2 MG/ML INJ IV PRN (23:34)
[2020-10-16] MEDS: HYDROcodone/APAP 5-325MG 1 EACH TAB PO PRN ×2 (02:59→16:14)
[2020-10-16] MEDS: SODIUM CHLORIDE 0.9% 1,000 ML IV SCH ×2 (04:39→20:40)
[2020-10-16] MEDS: IBUPROFEN 800 MG TAB PO PRN (06:04)
[2020-10-16] MEDS: LEVOTHYROXINE 25 MCG TAB PO SCH (08:19)
[2020-10-16] MEDS: MAGNESIUM OXIDE 400 MG TAB PO SCH (08:19)
[2020-10-16] MEDS: amLODIPine 5 MG TAB PO SCH (08:19)
[2020-10-16] MEDS: THIAMINE 100 MG TAB PO SCH ×2 (08:19→17:07)
[2020-10-16] MEDS: METOPROLOL TARTRATE 50 MG TAB PO SCH ×2 (08:19→20:40)
[2020-10-16] MEDS: HEPARIN SODIUM,PORCINE/PF 5,000 UNIT/0.5 ML SYRINGE SQ SCH ×2 (08:19→20:40)
[2020-10-16] MEDS: PANTOPRAZOLE 40 MG TABLET PO SCH (08:19)
[2020-10-16] MEDS: lisinopriL 20 MG TAB PO SCH (08:19)
[2020-10-16] MEDS: LORazepam 2 MG/ML INJ IV PRN ×3 (08:19→17:06)
[2020-10-16] MEDS: ATORVASTATIN 40 MG TAB PO SCH (08:19)
[2020-10-16 08:55] LABS: Anisocytosis Slight; Basophils # (A) 0.1 k/uL (0-0.2); Basophils % (A) 2 %; Eosinophils # (A) 0.2 k/uL (0-0.7); Eosinophils % (A) 5 %; HCT 38.7 % (39.0-53.0); HGB 13.1 gm/dL (13.0-17.5); Lymphocytes # (A) 1.5 k/uL (1.0-4.8); Lymphocytes % (A) 30 %; MCH 35.7 pg (25.0-35.0); MCHC 33.9 g/dL (31.0-37.0); MCV 105.3 fL (80.0-100.0); Macrocytosis Moderate; Mean Platelet Volume 7.9; Monocytes # (A) 0.6 k/uL (0-1.0); Monocytes % (A) 11 %; Neutrophils # (A) 2.5 k/uL (1.3-7.7); Neutrophils % (A) 50 %; Platelet Count 322 k/uL (150-450); RBC 3.68 m/uL (4.30-5.90); RDW 16.3 % (11.5-15.5)
[2020-10-16 09:08] LABS: ALT 49 U/L (4-49); AST 74 U/L (17-59); African American GFR (CKD) >90 (>60 ml/min/1.73 sqM); Albumin 3.5 g/dL (3.5-5.0); Alkaline Phosphatase 86 U/L (38-126); Anion Gap 5 mmol/L; Blood Urea Nitrogen 11 mg/dL (9-20); Calcium 8.4 mg/dL (8.4-10.2); Carbon Dioxide 27 mmol/L (22-30); Chloride 107 mmol/L (98-107); Glucose 108 mg/dL (74-99); Non-African American GFR(CKD) >90 (>60 ml/min/1.73 sqM); Sodium 139 mmol/L (137-145); Total Bilirubin 0.5 mg/dL (0.2-1.3)
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
[2020-10-16] MEDS ORDERED: QUEtiapine 100 MG TAB PO SCH (18:00)
[2020-10-16] MEDS ORDERED: cloNIDine HCL 0.1 MG TAB PO PRN (18:35)
[2020-10-16] MEDS: cloNIDine HCL 0.1 MG TAB PO SCH ×2 (19:05→20:41)
--- NOTE | 2020-10-16 19:57 | PN ---
PROGRESS NOTE DATE OF SERVICE: 10/16/2020 This is a 55-year-old gentleman with acute alcohol intoxication, being closely monitored. No chest pain. No palpitations. Patient is complaining of right-sided chest pain. Patient had possible rib fracture. PHYSICAL EXAMINATION: Alert and oriented x3. Pulse 65, blood pressure 116/94, respirations 16, temperature 98.2, pulse ox 98% on room air. HEENT: Conjunctivae normal. Oral mucosa moist. NECK: No jugular venous distention. No lymph node enlargement. CARDIOVASCULAR: S1, S2, muffled. No S3, no S4, RESPIRATORY: Diminished breath sounds at the bases. A few rhonchi, no crackles. ABDOMEN: Soft, nontender. LEGS: No edema, no swelling. NERVOUS SYSTEM: No focal deficits. LABS: WBC 5 and MCV 105.3. ASSESSMENT: 1. Acute alcohol intoxication. 2. Acute alcohol withdrawal and early delirium tremens. 3. Hypertensive urgency and accelerated hypertension. 4. Hypernatremia and dehydration. 5. Right-sided chest pain, possibly right 11th rib fracture. 6. Increased MCV. 7. Elevated AST/ALT, possibly alcoholic hepatitis. 8. Hypertension. 9. Hyperlipidemia. 10.History of hypothyroidism. 11.History of lung spots. 12.Anxiety, depression. 13.History of nicotine dependence. 14.FULL CODE. RECOMMENDATIONS AND DISCUSSION: I recommend to continue current medications, continue symptomatic treatment. Continue with CIWA protocol. I would recommend to add clonidine to the current regimen. Guarded prognosis because of multiple complex medical issues. Further recommendations to follow. See orders for details. Send to [facility] once the patient is stabilized. Prognosis guarded. MMODL / IJN: [id number] /
[2020-10-16] MEDS: QUEtiapine 50 MG TAB PO SCH (20:40)
[2020-10-17] MEDS: HYDROcodone/APAP 5-325MG 1 EACH TAB PO PRN ×3 (05:23→20:30)
[2020-10-17] MEDS: HEPARIN SODIUM,PORCINE/PF 5,000 UNIT/0.5 ML SYRINGE SQ SCH ×2 (08:34→20:30)
[2020-10-17] MEDS: ATORVASTATIN 40 MG TAB PO SCH (08:35)
[2020-10-17] MEDS: QUEtiapine 50 MG TAB PO SCH ×2 (08:35→20:29)
[2020-10-17] MEDS: PANTOPRAZOLE 40 MG TABLET PO SCH (08:35)
[2020-10-17] MEDS: METOPROLOL TARTRATE 50 MG TAB PO SCH ×2 (08:35→20:29)
[2020-10-17] MEDS: THIAMINE 100 MG TAB PO SCH ×2 (08:35→17:00)
[2020-10-17] MEDS: LEVOTHYROXINE 25 MCG TAB PO SCH (08:35)
[2020-10-17] MEDS: MAGNESIUM OXIDE 400 MG TAB PO SCH (08:35)
[2020-10-17] MEDS: lisinopriL 20 MG TAB PO SCH (08:35)
[2020-10-17] MEDS: amLODIPine 5 MG TAB PO SCH (08:35)
[2020-10-17] MEDS: cloNIDine HCL 0.1 MG TAB PO SCH ×3 (08:36→20:29)
[2020-10-17] MEDS: SODIUM CHLORIDE 0.9% 1,000 ML IV SCH ×2 (09:13→21:02)
--- NOTE | 2020-10-17 18:44 | PN ---
PROGRESS NOTE DATE OF SERVICE: 10/17/2020 This 55-year-old gentleman admitted with acute alcohol intoxication, acute alcohol withdrawal and delirium tremens being closely monitored. No chest pain. No palpitations. No fever. Psychiatry seen the patient, recommended inpatient substance abuse disorder. No chest pain. No palpitations. No fever. PHYSICAL EXAMINATION: Alert and oriented x3. Pulse 62. Blood pressure 124/80, respiration 16, temperature 97.7, pulse ox 98% on room air. HEENT: Conjunctivae normal. NECK: No JVD. CARDIOVASCULAR: S1, S2 muffled. RESPIRATORY SYSTEM: Breath sounds diminished at the bases. A few scattered rhonchi. ABDOMEN: Soft. NERVOUS SYSTEM: No focal deficits. MCV 105.3, sodium 139, which is improved. ASSESSMENT: 1. Acute alcohol intoxication. 2. Acute alcohol withdrawal with early delirium tremens. 3. Hypertensive urgency and accelerated hypertension, present on admission. 4. Hypernatremia, dehydration, present on admission. 5. Right-sided chest pain, possible right 11th rib fracture, present on admission. 6. Increased MCV. 7. Elevated AST/ALT possibly alcoholic hepatitis. 8. Hypertension. 9. Hyperlipidemia. 10.History of hypothyroidism. 11.History of lung spots. 12.Anxiety, depression. 13.History of nicotine dependence. 14.FULL CODE. RECOMMENDATIONS AND DISCUSSION: Recommend to continue current medications, management and symptomatic treatment. We will recommend repeat labs. Continue the IV fluids as of now. Continue the pain management. We will address the above mentioned multiple complex medical issues and continue with CIWA protocol and DT precautions as well. Social Work and Case Management to arrange for inpatient substance abuse counseling and rehab. Prognosis guarded. Further recommendations to follow. MMODL / IJN: [id number] /
[2020-10-18] MEDS: cloNIDine HCL 0.1 MG TAB PO SCH ×3 (08:21→21:57)
[2020-10-18] MEDS: QUEtiapine 50 MG TAB PO SCH ×2 (08:22→21:57)
[2020-10-18] MEDS: PANTOPRAZOLE 40 MG TABLET PO SCH (08:22)
[2020-10-18] MEDS: THIAMINE 100 MG TAB PO SCH ×2 (08:22→17:36)
[2020-10-18] MEDS: MAGNESIUM OXIDE 400 MG TAB PO SCH (08:22)
[2020-10-18] MEDS: METOPROLOL TARTRATE 50 MG TAB PO SCH ×2 (08:22→21:57)
[2020-10-18] MEDS: lisinopriL 20 MG TAB PO SCH (08:22)
[2020-10-18] MEDS: LEVOTHYROXINE 25 MCG TAB PO SCH (08:22)
[2020-10-18] MEDS: amLODIPine 5 MG TAB PO SCH (08:22)
[2020-10-18] MEDS: HEPARIN SODIUM,PORCINE/PF 5,000 UNIT/0.5 ML SYRINGE SQ SCH ×2 (08:22→21:57)
[2020-10-18] MEDS: ATORVASTATIN 40 MG TAB PO SCH (08:22)
[2020-10-18] MEDS: HYDROcodone/APAP 5-325MG 1 EACH TAB PO PRN ×3 (08:34→23:53)
[2020-10-18 09:30] LABS: HCT 39.2 % (39.6-50.0); MCHC 33.2 g/dL (32.0-37.0); MCV 105.7 fL (80.0-97.0); Mean Platelet Volume 11.4 fL (9.5-12.2); Platelet Count 306 X 10*3/uL (140-440); RBC 3.71 X 10*6/uL (4.40-5.60); RDW 15.9 % (11.5-14.5); WBC 5.42 X 10*3/uL (4.50-10.00)
[2020-10-18 09:52] LABS: African American GFR (CKD) 129.4 (60.0-200.0); Anion Gap 7.6 mmol/L (4.00-12.00); Calcium 8.9 mg/dL (8.7-10.3); Carbon Dioxide 26.4 mmol/L (21.6-31.8); Non-African American GFR(CKD) 111.6 (60.0-200.0)
[2020-10-18 10:56] LABS: Basophils # (A) 0.11 X 10*3/uL (0.00-0.10); Eosinophils # (A) 0.38 X 10*3/uL (0.04-0.35); Lymphocytes # (A) 2.16 X 10*3/uL (0.90-5.00); Lymphocytes % (A) 39.9 %; Monocytes # (A) 0.66 X 10*3/uL (0.20-1.00); Monocytes % (A) 12.2 %; Neutrophils # (A) 2.09 X 10*3/uL (1.80-7.70); Neutrophils % (A) 38.5 %
[2020-10-18 10:57] LABS: Macrocytosis (M) 2+
[2020-10-18] MEDS: SODIUM CHLORIDE 0.9% 1,000 ML IV SCH (11:40)
--- NOTE | 2020-10-18 15:15 | PN ---
PROGRESS NOTE DATE OF SERVICE: 10/18/2020 This 55-year-old gentleman admitted with acute alcohol intoxication and delirium tremens is being closely monitored. The patient had hypertensive urgency also. The patient is being closely monitored and [facility] is being planned for tomorrow. No chest pain. No palpitations. No fever. PHYSICAL EXAMINATION: Alert and oriented x3. Pulse is 59, blood pressure 133/84, respirations 16, temperature 98 degrees, pulse ox 97% on room air. HEENT: Conjunctivae normal. Oral mucosa moist. NECK: No jugular venous distention. No lymph node enlargement. CARDIOVASCULAR: S1, S2, muffled. No S3, no S4, RESPIRATORY: Diminished breath sounds at the bases. No rhonchi, no crackles. ABDOMEN: Soft, nontender. LEGS: No edema, no swelling. NERVOUS SYSTEM: No focal deficits. LABS: WBC 5, hemoglobin 13, sodium 130, potassium 4.9. Alcohol is 361. ASSESSMENT: 1. Acute alcohol intoxication. 2. Acute alcohol withdrawal with early delirium tremens. 3. Hypertensive urgency and accelerated hypertension, present on admission. 4. Hypernatremia, dehydration, present on admission. 5. Right-sided chest pain, possible right 11th rib fracture, present on admission. 6. Increased MCV. 7. Elevated AST/ALT, possible alcoholic hepatitis. 8. Hypertension. 9. Hyperlipidemia. 10.History of hypothyroidism. 11.History of lung spots. 12.Anxiety, depression. 13.History of nicotine dependence. 14.FULL CODE. RECOMMENDATIONS AND DISCUSSION: Recommend to continue current management and symptomatic treatment. Otherwise, recommend child welfare social worker and upper caser evaluation and possible discharge to [facility]. Continue the DT precautions and CIWA protocol also. Prognosis guarded. Further recommendations to follow. MMODL / IJN: [id number] /
[2020-10-18] MEDS: IBUPROFEN 800 MG TAB PO PRN (22:08)
[2020-10-19] MEDS: SODIUM CHLORIDE 0.9% 1,000 ML IV SCH (02:04)
[2020-10-19] MEDS: MAGNESIUM OXIDE 400 MG TAB PO SCH (07:45)
[2020-10-19] MEDS: QUEtiapine 50 MG TAB PO SCH (07:45)
[2020-10-19] MEDS: METOPROLOL TARTRATE 50 MG TAB PO SCH (07:45)
[2020-10-19] MEDS: lisinopriL 20 MG TAB PO SCH (07:45)
[2020-10-19] MEDS: cloNIDine HCL 0.1 MG TAB PO SCH (07:46)
[2020-10-19] MEDS: THIAMINE 100 MG TAB PO SCH (07:46)
[2020-10-19] MEDS: ATORVASTATIN 40 MG TAB PO SCH (07:46)
[2020-10-19] MEDS: LEVOTHYROXINE 25 MCG TAB PO SCH (07:46)
[2020-10-19] MEDS: PANTOPRAZOLE 40 MG TABLET PO SCH (07:46)
[2020-10-19] MEDS: HYDROcodone/APAP 5-325MG 1 EACH TAB PO PRN (07:46)
[2020-10-19] MEDS: HEPARIN SODIUM,PORCINE/PF 5,000 UNIT/0.5 ML SYRINGE SQ SCH (07:46)
[2020-10-19] MEDS: amLODIPine 5 MG TAB PO SCH (07:46)
[2020-10-19 07:53] VITALS: BP 133/99; PULSE 60; RESP 19; TEMP 97.4
--- NOTE | 2020-10-20 07:14 | DS ---
DISCHARGE SUMMARY FINAL DIAGNOSES: 1. Acute alcohol intoxication. 2. Acute alcohol withdrawal and early delirium tremens. 3. Hypertensive urgency with accelerated hypertension, present on admission. 4. Hyponatremia, dehydration, present on admission. 5. Right-sided chest pain, possible right 11th rib fracture, present on admission. 6. Increased MCV. 7. Increased elevated AST, ALT, possibly alcoholic hepatitis. 8. Hypertension. 9. Hyperlipidemia. 10.History of hypothyroidism. 11.History of lung spots. 12.Anxiety, depression. 13.History of nicotine dependence. 14.FULL CODE. DISCHARGE DISPOSITION: The patient will be discharged in stable condition with guarded prognosis. HISTORY OF PRESENT ILLNESS: This 55-year-old gentleman with a past medical history of multiple medical problems including alcohol intoxication. The patient was treated with [facility] protocol. Patient improved significantly. The patient will be discharged in stable condition with guarded prognosis. Patient apparently could not get into [facility] until Sunday. On exam, vitals stable. Cardiovascular S1, S2. Abdomen soft. Nervous system: No focal deficits. DISCHARGE ADVICE AND MEDICATIONS: 1. Cardiac diet. 2. Activity limited until followup. 3. Follow up with primary physician in 2-3 days. 4. Follow up with [facility] as advised. 5. No EtOH. 6. Lipitor 40 mg daily. 7. Lisinopril 40 mg daily. 8. Lopressor 100 mg b.i.d. 9. Motrin p.r.n. 10.Seroquel 100 mg p.o. daily. 11.Synthroid 25 mcg. 12.Catapres 0.1 t.i.d. 13.Folic acid 1 mg daily. 14.Magnesium oxide 400 mg daily. 15.Multivitamins one daily. 16.Norvasc 5 mg daily. 17.Seroquel 150 mg daily. 18.Vitamin B1 100 mg p.o. b.i.d. Once again, the patient discharged in stable condition with guarded prognosis. MMODL / IJN: [id number] /
== END 2020-10-19 14:17 | DRG 897 ==
LOC: EC 16:00 → 4SSUR 17:23 → OBSVTOIN 10-16 12:33
PROVIDERS: ADMIT Hospitalist; ATTEND Hospitalist
DX: F10.221 Alcohol dependence with intoxication delirium (principal); E87.1 Hypo-osmolality and hyponatremia; Z20.828 Contact with and (suspected) exposure to other viral communicable diseases; I16.0 Hypertensive urgency; I10 Essential (primary) hypertension; Y90.8 Blood alcohol level of 240 mg/100 ml or more; E03.9 Hypothyroidism, unspecified; E78.5 Hyperlipidemia, unspecified; E86.0 Dehydration; F17.200 Nicotine dependence, unspecified, uncomplicated; F32.9 Major depressive disorder, single episode, unspecified; F41.9 Anxiety disorder, unspecified; Z79.890 Hormone replacement therapy; F39 Unspecified mood [affective] disorder
CPT/HCPCS: 36415; 70450; 72125; 80048; 80053; 80306; 80320; 85025; 87635; 96374; 96375; 99285

== ENCOUNTER 2021-05-28 16:25 | Emergency (ER) | payer OTHER ==
[2021-05-28 16:38] VITALS: RESP 18; TEMP 99
[2021-05-28] MEDS ORDERED: SODIUM CHLORIDE 0.9% 1,000 ML IV ONE (16:40)
[2021-05-28 17:05] LABS: Basophils # (A) 0.1 k/uL (0-0.2); Basophils % (A) 2 %; Eosinophils # (A) 0.1 k/uL (0-0.7); Eosinophils % (A) 1 %; HCT 39.6 % (39.0-53.0); HGB 13.5 gm/dL (13.0-17.5); Lymphocytes # (A) 0.7 k/uL (1.0-4.8); Lymphocytes % (A) 16 %; MCH 35.4 pg (25.0-35.0); MCHC 34.1 g/dL (31.0-37.0); MCV 103.9 fL (80.0-100.0); Macrocytosis Slight; Mean Platelet Volume 10.8; Monocytes # (A) 0.4 k/uL (0-1.0); Monocytes % (A) 8 %; Neutrophils # (A) 3.4 k/uL (1.3-7.7); Neutrophils % (A) 71 %; Platelet Count 105 k/uL (150-450); RBC 3.81 m/uL (4.30-5.90); RDW 14.5 % (11.5-15.5); WBC 4.8 k/uL (3.8-10.6)
[2021-05-28 17:15] LABS: ALT 63 U/L (4-49); AST 203 U/L (17-59); African American GFR (CKD) >90 (>60 ml/min/1.73 sqM); Albumin 3.9 g/dL (3.5-5.0); Alkaline Phosphatase 94 U/L (38-126); Anion Gap 7 mmol/L; Blood Urea Nitrogen 11 mg/dL (9-20); Calcium 9.5 mg/dL (8.4-10.2); Carbon Dioxide 26 mmol/L (22-30); Chloride 101 mmol/L (98-107); Glucose 112 mg/dL (74-99); INR 1.1 (<1.2); Non-African American GFR(CKD) >90 (>60 ml/min/1.73 sqM); Partial Thromboplastin Time 23.3 sec (22.0-30.0); Potassium 3.8 mmol/L (3.5-5.1); Prothrombin Time 11.2 sec (9.0-12.0); Sodium 134 mmol/L (137-145); Total Bilirubin 1.6 mg/dL (0.2-1.3); Total Protein 6.7 g/dL (6.3-8.2)
[2021-05-28 17:23] LABS: Appearance,Urine Clear (Clear); Bilirubin,Urine Negative (Negative); Blood,Urine Negative (Negative); Color,Urine Yellow; Glucose,Urine (UA) Negative (Negative); Ketones,Urine Negative (Negative); Leukocyte Esterase,Urine Negative (Negative); Nitrite,Urine Negative (Negative); Protein,Urine Trace (Negative); Specific Gravity,Urine 1.014 (1.001-1.035); Urobilinogen,Urine <2.0 mg/dL (<2.0)
[2021-05-28 17:32] LABS: Amphetamine Screen,Urine Not Detected (NotDetected); Barbiturate Screen,Urine Not Detected (NotDetected); Benzodiazepines Screen,Urine Detected (NotDetected); Cocaine Screen,Urine Not Detected (NotDetected); Methadone Screen, Urine Not Detected (NotDetected); Opiate Screen,Urine Not Detected (NotDetected); Oxycodone Screen, Urine Not Detected (NotDetected); Phencyclidine Screen,Urine Not Detected (NotDetected); Tricyclic Antidepressant,Urine Not Detected (NotDetected); Urn Cannabinoid Scrn Not Detected (NotDetected)
[2021-05-28 17:34] LABS: Magnesium 0.9 mg/dL (1.6-2.3)
--- NOTE | 2021-05-28 17:51 | XR ---
EXAMINATION TYPE: XR elbow complete LT DATE OF EXAM: 05/28/2021 COMPARISON: NONE HISTORY: Elbow pain TECHNIQUE: Review FINDINGS: I see no fracture nor dislocation. Joint spaces are normal. There is no sign of elbow joint effusion. IMPRESSION: Negative left elbow exam
--- NOTE | 2021-05-28 17:53 | XR ---
EXAMINATION TYPE: XR chest 2V DATE OF EXAM: 05/28/2021 COMPARISON: 10/15/2020 HISTORY: Altered mental status. Chest pain. TECHNIQUE: FINDINGS: There is no heart failure nor confluent pneumonic infiltrate. There are multiple old left-sided rib f ractures. There is no pleural effusion. There is mild flattening of the diaphragm. Thoracic spine is intact. IMPRESSION: No active cardiopulmonary disease. There is probably some COPD. No adverse change.
[2021-05-28] MEDS: MAGNESIUM SULFATE-D5W PMX 1 GM in DEXTROSE/WATER 1 100ML.BAG IVPB SCH ×3 (19:29→22:11)
--- NOTE | 2021-05-28 19:42 | CT ---
EXAMINATION TYPE: CT brain wo con DATE OF EXAM: 05/28/2021 COMPARISON: 10/15/2020 HISTORY: Frequent falls. CT DLP: 1144.4 mGycm Automated exposure control for dose reduction was used. Ventricles have normal size. There is no mass effect or midline shift. There is no sign of intracrani al hemorrhage. There is mild cerebral atrophy. The calvarium is intact. Skull base is intact. There i s normal aeration of the mastoid sinuses. IMPRESSION: No acute intracranial abnormality. No change.
--- NOTE | 2021-05-28 20:00 | ED ---
Fall HPI - General Chief Complaint: Fall Stated Complaint: frequent falls Time Seen by Provider: 05/28/21 16:40 Source: patient, EMS, RN notes reviewed Mode of arrival: EMS - History of Present Illness Initial Comments: Patient is a 55-year-old male that presents to the emergency department complaining of repeated falls. He presents from [facility] facility. He notes he does have a history of alcoholism and is supposed to use a walker to get around. Patient notes that he regularly forgets his walker get weak and falls. Patient notes he fell today injuring his left elbow has a small abrasion to bridge of his nose. Patient was otherwise well-appearing in no apparent distress. He denied any chest pain shortness of breath headache nausea vomiting diarrhea constipation fever fatigue chills. - Related Data Home Medications Medication Instructions Recorded Confirmed Atorvastatin [Lipitor] 40 mg PO DAILY 08/27/20 05/28/21 Levothyroxine Sodium [Synthroid] 25 mcg PO [id number] 08/27/20 05/28/21 Metoprolol Tartrate [Lopressor] 100 mg PO BID 08/27/20 05/28/21 QUEtiapine [SEROquel] 100 mg PO DAILY@1800 08/27/20 05/28/21 Acetaminophen Tab [Tylenol] 650 mg PO TID PRN 05/28/21 05/28/21 Calcium/Magnesium/Zinc 1 tab PO TID PRN 05/28/21 05/28/21 [Bdfxxdw-[id number]-Zofe Tablet] Chlorpheniramine Maleate 4 mg PO Q4H PRN 05/28/21 05/28/21 Clopidogrel [Plavix] 75 mg PO DAILY 05/28/21 05/28/21 Ibuprofen [Motrin Ib] 600 mg PO Q6H PRN 05/28/21 05/28/21 Thiamine [Vitamin B-1] 100 mg PO BID 05/28/21 05/28/21 cloNIDine HCL [Catapres] 0.1 - 0.3 mg PO QID PRN 05/28/21 05/28/21 ondansetron HCL [Zofran] 8 mg PO Q6H PRN 05/28/21 05/28/21 Previous Rx's Medication Instructions Recorded Magnesium Oxide [Magox 400] 400 mg PO DAILY 30 Days #30 tablet 09/01/20 Folic Acid 1 mg PO DAILY #30 tablet 10/19/20 Multivitamins, Thera [Multivitamin] 1 tab PO DAILY #30 tablet 10/19/20 QUEtiapine [SEROquel] 50 mg PO DAILY #30 tab 10/19/20 cloNIDine HCL [Catapres] 0.1 mg PO TID #90 tab 10/19/20 Magnesium Oxide [Mag-Oxide] 400 mg PO DAILY 3 Days #3 tablet 05/28/21 Allergies Allergy/AdvReac Type Severity Reaction Status Date / Time No Known Allergies Allergy Verified 05/28/21 17:34 Review of Systems ROS Statement: Those systems with pertinent positive or pertinent negative responses have been documented in the HPI. ROS Other: All systems not noted in ROS Statement are negative. Past Medical History Past Medical History: Hyperlipidemia, Hypertension, Thyroid Disorder Additional Past Medical History / Comment(s): lung "spots" History of Any Multi-Drug Resistant Organisms: None Reported Past Surgical History: Appendectomy Additional Past Surgical History / Comment(s): rt leg stent, Past Anesthesia/Blood Transfusion Reactions: No Reported Reaction Past Psychological History: Anxiety, Depression Smoking Status: Current every day smoker Past Alcohol Use History: Abuse, Daily, Heavy Past Drug Use History: Marijuana General Exam General appearance: alert, in no apparent distress Head exam: Present: atraumatic, normocephalic, normal inspection Eye exam: Present: normal appearance, PERRL, EOMI. Absent: scleral icterus, conjunctival injection, periorbital swelling ENT exam: Present: normal exam, mucous membranes moist, other (Small abrasion to bridge of the nose.) Neck exam: Present: normal inspection Respiratory exam: Present: normal lung sounds bilaterally. Absent: respiratory distress, wheezes, rales, rhonchi, stridor Cardiovascular Exam: Present: regular rate, normal rhythm, normal heart sounds. Absent: systolic murmur, diastolic murmur, rubs, gallop, clicks GI/Abdominal exam: Present: soft, normal bowel sounds. Absent: distended, tenderness, guarding, rebound, rigid Extremities exam: Present: normal inspection, full ROM, normal capillary refill. Absent: tenderness, pedal edema, joint swelling, calf tenderness Neurological exam: Present: alert, oriented X3 Psychiatric exam: Present: normal affect, normal mood Skin exam: Present: warm, dry, intact, normal color. Absent: rash Course Vital Signs 05/28/21 05/28/21 16:28 19:33 Temperature 99.0 F Pulse Rate 84 68 Respiratory 18 18 Rate Blood Pressure 124/114 172/119 O2 Sat by Pulse 96 97 Oximetry Medical Decision Making - Medical Decision Making 75-year-old male complaining of weakness and repeated falls. Labs, EKG, chest x-ray, x-ray left elbow, CT of the brain, 1 L normal saline ordered. Labs unremarkable except for a low magnesium of 0.9, 3 g of magnesium ordered. Imaging all negative for any acute process. EKG is within normal limits. Case discussed with Dr. Whittaker, patient discharge back to facility with a short supply of magnesium oxide. - Lab Data Result diagrams: 05/28/21 16:57 05/28/21 16:57 Lab Results 05/28/21 05/28/21 05/28/21 Range/Units 16:57 16:57 16:57 WBC 4.8 (3.8-10.6) k/uL RBC 3.81 L (4.30-5.90) m/uL Hgb 13.5 (13.0-17.5) gm/dL Hct 39.6 (39.0-53.0) % MCV 103.9 H (80.0-100.0) fL MCH 35.4 H (25.0-35.0) pg MCHC 34.1 (31.0-37.0) g/dL RDW 14.5 (11.5-15.5) % Plt Count 105 L (150-450) k/uL MPV 10.8 Neutrophils % 71 % Lymphocytes % 16 % Monocytes % 8 % Eosinophils % 1 % Basophils % 2 % Neutrophils # 3.4 (1.3-7.7) k/uL Lymphocytes # 0.7 L (1.0-4.8) k/uL Monocytes # 0.4 (0-1.0) k/uL Eosinophils # 0.1 (0-0.7) k/uL Basophils # 0.1 (0-0.2) k/uL Macrocytosis Slight PT 11.2 (9.0-12.0) sec INR 1.1 (<1.2) APTT 23.3 (22.0-30.0) sec Sodium (137-145) mmol/L Potassium (3.5-5.1) mmol/L Chloride (98-107) mmol/L Carbon Dioxide (22-30) mmol/L Anion Gap mmol/L BUN (9-20) mg/dL Creatinine (0.66-1.25) mg/dL Est GFR (CKD-EPI)AfAm (>60 ml/min/1.73 sqM) Est GFR (CKD-EPI)NonAf (>60 ml/min/1.73 sqM) Glucose (74-99) mg/dL Calcium (8.4-10.2) mg/dL Magnesium (1.6-2.3) mg/dL Total Bilirubin (0.2-1.3) mg/dL AST (17-59) U/L ALT (4-49) U/L Alkaline Phosphatase (38-126) U/L Troponin I (0.000-0.034) ng/mL Total Protein (6.3-8.2) g/dL Albumin (3.5-5.0) g/dL Urine Color Yellow Urine Appearance Clear (Clear) Urine pH 8.0 (5.0-8.0) Ur Specific [place] 1.014 (1.001-1.035) Urine Protein Trace H (Negative) Urine Glucose (UA) Negative (Negative) Urine Ketones Negative (Negative) Urine Blood Negative (Negative) Urine Nitrite Negative (Negative) Urine Bilirubin Negative (Negative) Urine Urobilinogen <2.0 (<2.0) mg/dL Ur Leukocyte Esterase Negative (Negative) Urine Opiates Screen Not Detected (NotDetected) Ur Oxycodone Screen Not Detected (NotDetected) Urine Methadone Screen Not Detected (NotDetected) Ur Propoxyphene Screen Not Detected (NotDetected) Ur Barbiturates Screen Not Detected (NotDetected) U Tricyclic Antidepress Not Detected (NotDetected) Ur Phencyclidine Scrn Not Detected (NotDetected) Ur Amphetamines Screen Not Detected (NotDetected) U Methamphetamines Scrn Not Detected (NotDetected) U Benzodiazepines Scrn Detected H (NotDetected) Urine Cocaine Screen Not Detected (NotDetected) U Marijuana (THC) Screen Not Detected (NotDetected) Coronavirus (PCR) (Not Detectd) 05/28/21 05/28/21 05/28/21 Range/Units 16:57 16:57 17:43 WBC (3.8-10.6) k/uL RBC (4.30-5.90) m/uL Hgb (13.0-17.5) gm/dL Hct (39.0-53.0) % MCV (80.0-100.0) fL MCH (25.0-35.0) pg MCHC (31.0-37.0) g/dL RDW (11.5-15.5) % Plt Count (150-450) k/uL MPV Neutrophils % % Lymphocytes % % Monocytes % % Eosinophils % % Basophils % % Neutrophils # (1.3-7.7) k/uL Lymphocytes # (1.0-4.8) k/uL Monocytes # (0-1.0) k/uL Eosinophils # (0-0.7) k/uL Basophils # (0-0.2) k/uL Macrocytosis PT (9.0-12.0) sec INR (<1.2) APTT (22.0-30.0) sec Sodium 134 L (137-145) mmol/L Potassium 3.8 (3.5-5.1) mmol/L Chloride 101 (98-107) mmol/L Carbon Dioxide 26 (22-30) mmol/L Anion Gap 7 mmol/L BUN 11 (9-20) mg/dL Creatinine 0.65 L (0.66-1.25) mg/dL Est GFR (CKD-EPI)AfAm >90 (>60 ml/min/1.73 sqM) Est GFR (CKD-EPI)NonAf >90 (>60 ml/min/1.73 sqM) Glucose 112 H (74-99) mg/dL Calcium 9.5 (8.4-10.2) mg/dL Magnesium 0.9 L* (1.6-2.3) mg/dL Total Bilirubin 1.6 H (0.2-1.3) mg/dL AST 203 H (17-59) U/L ALT 63 H (4-49) U/L Alkaline Phosphatase 94 (38-126) U/L Troponin I <0.012 (0.000-0.034) ng/mL Total Protein 6.7 (6.3-8.2) g/dL Albumin 3.9 (3.5-5.0) g/dL Urine Color Urine Appearance (Clear) Urine pH (5.0-8.0) Ur Specific [place] (1.001-1.035) Urine Protein (Negative) Urine Glucose (UA) (Negative) Urine Ketones (Negative) Urine Blood (Negative) Urine Nitrite (Negative) Urine Bilirubin (Negative) Urine Urobilinogen (<2.0) mg/dL Ur Leukocyte Esterase (Negative) Urine Opiates Screen (NotDetected) Ur Oxycodone Screen (NotDetected) Urine Methadone Screen (NotDetected) Ur Propoxyphene Screen (NotDetected) Ur Barbiturates Screen (NotDetected) U Tricyclic Antidepress (NotDetected) Ur Phencyclidine Scrn (NotDetected) Ur Amphetamines Screen (NotDetected) U Methamphetamines Scrn (NotDetected) U Benzodiazepines Scrn (NotDetected) Urine Cocaine Screen (NotDetected) U Marijuana (THC) Screen (NotDetected) Coronavirus (PCR) Not Detected (Not Detectd) - EKG Data -: EKG Interpreted by Nv EKG shows normal: sinus rhythm Rate: normal EKG Comments: Ventricular rate 63 bpm, IA interval 204 ms, QRS duration 110 ms, QTC 425 ms normal sinus rhythm, pulmonary disease pattern and left anterior fascicular block. Possible inferior infarct age undetermined. Abnormal ECG. - Radiology Data Radiology results: report reviewed, image reviewed CT of the brain: No acute intracranial abnormality. No change. X-ray of the left elbow: Negative left elbow exam. X-ray of the chest: No active cardiopulmonary disease. There is probably some COPD. No change. Disposition Clinical Impression: Fall, Hypomagnesemia Disposition: HOME SELF-CARE Condition: Stable Instructions (If sedation given, give patient instructions): Fall Prevention (ED) Additional Instructions: Please return to the Emergency Department if symptoms worsen or any other concerns. Follow-up with primary care in 1-2 days. Use walker for ambulatory activities. Take magnesium as prescribed. Prescriptions: Magnesium Oxide [Mag-Oxide] 400 mg PO DAILY 3 Days #3 tablet Is patient prescribed a controlled substance at d/c from ED?: No Referrals: Nonstaff,Physician [Primary Care Provider] - 1-2 days Time of Disposition: 20:00
[2021-05-28] MEDS ORDERED: LORazepam 2 MG/ML INJ IV STA (20:36)
[2021-05-28] MEDS ORDERED: LORazepam 2 MG/ML INJ IV PRN (22:51)
[2021-05-29 00:07] VITALS: BP 160/117; PULSE 71
== END 2021-05-29 00:45 | disposition home or self-care (01) ==
LOC: EC 16:25
DX: E83.42 Hypomagnesemia (principal); E78.5 Hyperlipidemia, unspecified; I10 Essential (primary) hypertension; E07.9 Disorder of thyroid, unspecified; F41.9 Anxiety disorder, unspecified; F32.A Depression, unspecified; F17.200 Nicotine dependence, unspecified, uncomplicated; F12.90 Cannabis use, unspecified, uncomplicated; Z79.02 Long term (current) use of antithrombotics/antiplatelets; Z90.49 Acquired absence of other specified parts of digestive tract; Z20.822 Contact with and (suspected) exposure to COVID-19
CPT/HCPCS: 99285; 96365; 96366; 96375; 96376; 96361; 36415; 93005; 80053; 83735; 84484; 85025; 85610; 85730; 81003; 80306; 87635; 73080; 71046; 70450; J2060 ×2; J3475